=== PATIENT | male | born 1995 | race Caucasian/White ===

== ENCOUNTER 2018-03-06 17:11 | Emergency (ER) | payer BC, OTHER, SELFPAY ==
[2018-03-06 17:12] VITALS: BP 125/82; PULSE 65; RESP 16; TEMP 37.1; O2SAT 96; BMI 28.5
[2018-03-06 17:55] LABS: Absolute Lymphocyte Count 1.84 X10^3/ul (0.83-4.51); Absolute Neutrophil Count 3.8 X10^3/uL (2.0-7.7); Basophil# 0.02 X10^3/uL; Basophil% 0.3 % (0-1); Eosinophil# 0.09 X10^3/uL; Eosinophils% 1.4 % (0-5); Hematocrit 43.8 % (40-54); Hemoglobin 14.9 g/dl (13.0-16.5); Lymphocyte # 1.84 X10^3/ul (4.0); Lymphocyte % 28.7 % (19-41); Mean Corpuscular Hgb 29.4 pg (27.0-32.0); Mean Corpuscular Volume 86.4 fL (80-94); Monocyte# 0.64 X10^3/uL; Neutrophil # 3.81 X10^3/uL (2.7-7.7); Neutrophil % 59.4 % (47-70); POSITIVE COUNT NO; POSITIVE DIFFERENTIAL NO; POSITIVE MORPHOLOGY NO; Platelet Count 209 K/mm3 (150-450); RBC Distribution Width CV 13.1 % (11.6-14.6); RBC Distribution Width SD 41.5 fl (35.1-43.9); Red Blood Count 5.07 M/mm3 (4.6-6.2); White Blood Count 6.4 K/mm3 (4.4-11.0)
[2018-03-06 18:06] LABS: Anion Gap 4 (5-15); BUN 19 mg/dL (7-18); BUN/Creat Ratio 18.1 RATIO (10-20); Chloride 110 mmol/L (98-107); Creatinine, Serum 1.05 mg/dL (0.70-1.30); EST Glomerular Filtration Rate 93 mL/min (>60); Est Glom Filt Rate - Afr Amer 112 mL/min (>60); Estimated Creatinine Clearance 127.21 ml/min; Glucose 99 mg/dL (74-106); Potassium 3.7 mmol/L (3.5-5.1); Sodium Level 141 mmol/L (136-145)
--- NOTE | 2018-03-06 18:37 | ED.DCSUM_ITS ---
- ER Visit Summary Date of Service: 03/06/18 Chief Complaint: Anxiety History of Present Illness: The patient is a 22 M presenting for evaluation secondary to what the patient thinks is an anxiety attack. Patient states that intermittently over the course last 4 years he has had episodes that when he wakes up from a recurrent nightmare about his ex-girlfriend he is weak, shaky, sweaty, and has palpitations. Patient reports that he had a episode today when he went to work his boss was concerned about him and recommended that he come to the emergency department for evaluation. Patient states that he potentially had a history of being hypoglycemic with this in the past. He is not on any sort of medications. He denies being suicidal homicidal or hallucinating. Review of systems otherwise negative. Physical Examination: Vital signs are within normal limits, patient is afebrile. General: Patient is well-nourished well-developed and in no acute distress. Head: Normocephalic, atraumatic Eyes: Pupils equal round and reactive bilaterally, extra occular motion intact bialterally ENT: Moist mucous membranes Neck: Supple, no lymphadenopathy, no JVD, no meningismus CVS: Heart regular rate and rhythm, no murmurs, rubs or gallops, radial pulses 2 + bilaterally Resp: Respirations nondistressed, lung sounds clear bilaterally Abdomen: Soft, nontender, nondistended, no palpable masses, normal bowel sounds Back: Nontender Extremities: Nontender, atraumatic, active full range of motion, no peripheral edema Skin: warm, no rashes, no petechia Neuro: Alert and oriented x 4, CN 2-12 intact, no lateralizing neurological defecits Psyc: Normal affect Test Results: CBC, chemistry unremarkable Emergency Department Course and Treatment: Patient presented for evaluation secondary to an episode of feeling shaky, anxious, weak. His PTT in the field was found to be in the 70s, and the emergency department was in the 90s. Screening labs were obtained, there were found to be negative. Patient was symptom-free in the emergency department. I do believe that this likely is associated with an element of anxiety was recommended to follow-up with his primary care doctor potentially be started on a antidepressant or antianxiety medication Disposition: Discharge Impression: 1. Anxiety This note was generated with [employer] software. It may contain incorrect words, spelling, and punctuation that were not noted in review of the chart prior to signing ED Disposition - Plan for ED Patient: Chief Complaint: General Illness Diagnosis: Anxiety Instructions: ED Stress React Referrals: Tez Ramos DO [Primary Care Provider] - 1-2 Weeks
[2018-03-06 19:03] VITALS: BP 124/67; PULSE 70; RESP 15; O2SAT 99
== END 2018-03-06 19:05 | disposition home or self-care (01) ==
PROVIDERS: Emergency Provider Emergency Medicine; Family Provider Family Medicine; PCP Family Medicine
DX: F41.9 Anxiety disorder, unspecified (principal)
CPT/HCPCS: 80048; 85025; 99284; J7030

== ENCOUNTER 2018-05-03 19:59 | Emergency (ER) | payer BC, OTHER, SELFPAY ==
[2018-05-03 19:59] VITALS: BP 128/85; PULSE 97; RESP 20; TEMP 36.6; O2SAT 97; BMI 28.1
[2018-05-03 20:12] VITALS: PULSE 99; RESP 16; O2SAT 95
[2018-05-03] MEDS: Ondansetron 4 MG/2 ML Vial IV (20:38)
[2018-05-03 20:39] VITALS: O2SAT 100
--- NOTE | 2018-05-03 20:39 | ED.RN ---
AFTER STARTED IV PT FELT LIGHTHEADED AND NAUSEATED. DR CHAVIRA MADE AWARE, ZOFRAN GIVEN. PT REPORTS FEELING BETTER WITH NO COMPLAINTS AFTER MED ADMINISTRATION.
[2018-05-03 20:51] LABS: Absolute Lymphocyte Count 2.48 X10^3/ul (0.83-4.51); Absolute Neutrophil Count 5.4 X10^3/uL (2.0-7.7); Basophil# 0.05 X10^3/uL; Basophil% 0.6 % (0-1); Eosinophil# 0.09 X10^3/uL; Eosinophils% 1.1 % (0-5); Hematocrit 47.1 % (40-54); Hemoglobin 16.3 g/dl (13.0-16.5); Lymphocyte # 2.48 X10^3/ul (4.0); Mean Corp Hgb Conc 34.6 g/gl (32-36); Mean Corpuscular Hgb 29.4 pg (27.0-32.0); Mean Platelet Vol. 9.9 fl (6.2-12.0); Monocyte# 0.54 X10^3/uL; Monocyte% 6.3 % (0-10); Neutrophil # 5.35 X10^3/uL (2.7-7.7); Neutrophil % 62.5 % (47-70); Platelet Count 235 K/mm3 (150-450); RBC Distribution Width CV 12.9 % (11.6-14.6); RBC Distribution Width SD 39.8 fl (35.1-43.9); Red Blood Count 5.54 M/mm3 (4.6-6.2); White Blood Count 8.6 K/mm3 (4.4-11.0)
[2018-05-03 20:52] LABS: POSITIVE COUNT NO; POSITIVE DIFFERENTIAL NO; POSITIVE MORPHOLOGY NO
[2018-05-03 21:04] LABS: D-Dimer Quantitative (DVT/PE) < 0.27 FEU/ug/m (0.27-0.49)
[2018-05-03 21:12] LABS: AST(SGOT) 16 U/L (15-37); Alanine Aminotransfer ALT/SGPT 37 U/L (16-61); Albumin, Serum 4.5 g/dL (3.2-5.0); Alkaline Phosphatase 76 U/L (45-117); Anion Gap 6 (5-15); BUN 21 mg/dL (7-18); BUN/Creat Ratio 18.9 RATIO (10-20); Bilirubin, Direct 0.14 mg/dL (0.00-0.30); Calcium,Total 9.4 mg/dL (8.5-10.1); Chloride 107 mmol/L (98-107); Creatinine, Serum 1.11 mg/dL (0.70-1.30); EST Glomerular Filtration Rate 87 mL/min (>60); Est Glom Filt Rate - Afr Amer 105 mL/min (>60); Globulin 3.6 g/dL (2.2-4.2); Glucose 81 mg/dL (74-106); Lipase 137 U/L (73-393); Potassium 4.4 mmol/L (3.5-5.1); Protein, Total 8.1 g/dL (6.4-8.2); Sodium Level 141 mmol/L (136-145)
--- NOTE | 2018-05-03 21:48 | ED.DCSUM_ITS ---
- ER Visit Summary Date of Service: 05/03/18 Chief Complaint: Left chest and left upper quadrant pain History of Present Illness: The patient is a 22 M reports onset of pain to the lower chest around 4 PM this afternoon. He states he has intermittent twinges of pain to the lower chest, left much more so than right. He denies shortness of breath. No recent travel. States it almost feels like he is getting spasms. Patient has a history of low blood sugar, anxiety, depression. Physical Examination: Vital signs unremarkable. Patient sitting upright in bed. He appears somewhat pale, but did poorly have a vagal response with IV insertion. Heart is regular rate and rhythm. There is no reproducible chest wall tenderness. Lung sounds are clear. Abdomen soft nontender. Lower exam examination was no calf tenderness or edema. Test Results: CBC and chemistry studies normal. LFTs and lipase normal. Troponin negative. D-dimer negative. EKG is sinus 84 with no sign of acute ischemia. Chest x-ray normal. Emergency Department Course and Treatment: Patient was given Zofran, IV fluids, Toradol. On repeat evaluation he has some continued spasms, but overall decrease in frequency. He will be treated with naproxen and Flexeril. Encouraged to return for worsening symptoms or if any concerns arise. Treatment Plan: [] Disposition: Discharge Impression: Atypical chest pain This note was generated with [employer] dictation software. It may contain incorrect words, spelling, and punctuation that were not noted in review of the chart prior to signing ED Disposition - Plan for ED Patient: Disposition: Home or Assisted Living Chief Complaint: Chest Other Instructions: ED Chest Pain NonCardiac Prescriptions: Naproxen [Naprosyn] 500 mg PO BID PRN PRN #20 tablet PRN Reason: Pain Cyclobenzaprine [Flexeril] 10 mg PO TID PRN #20 tablet PRN Reason: Muscle Spasm Referrals: Tez Ramos DO [Primary Care Provider] - 1 Week if not improving
[2018-05-03] MEDS: Ketorolac 30 MG/ML Syringe IV (22:06)
[2018-05-03 22:10] VITALS: BP 107/75; PULSE 58; RESP 14; O2SAT 100
== END 2018-05-03 22:11 | disposition home or self-care (01) ==
PROVIDERS: Emergency Provider Emergency Medicine; Family Provider Family Medicine; PCP Family Medicine
DX: R07.89 Other chest pain (principal)
CPT/HCPCS: 71045; 80048; 80076; 83690; 84484; 85025; 85379; 93005; 99284; A4216; J2405

== ENCOUNTER → 2022-04-28 | Outpatient (CLI) | payer OTHER, SELFPAY | END | disposition home or self-care (01) | PROVIDERS: Visit Provider Ophthalmology | DX: H10.012 Acute follicular conjunctivitis, left eye (principal) | CPT/HCPCS: 87110; 87140 ==

== ENCOUNTER → 2022-05-09 | Outpatient (CLI) | payer OTHER, SELFPAY | END | disposition home or self-care (01) | PROVIDERS: Visit Provider Ophthalmology | DX: H10.012 Acute follicular conjunctivitis, left eye (principal) ==

== ENCOUNTER 2024-05-31 07:19 | Emergency (ER) | payer BC, SELFPAY ==
[2024-05-31 07:19] VITALS: BP 113/73; PULSE 75; RESP 18; TEMP 36.7; O2SAT 95; BMI 31.4
--- NOTE | 2024-05-31 07:51 | EX.ED.DYSGE1 ---
HPI History of Present Illness Chief Complaint: Anxiety Detail of Chief Complaint: Anxiety Informant: patient Narrative Narrative: Patient presents to the emergency department complaint of anxiety. Patient states that he woke up feeling anxious and then went to work. Work has been more stressful. He states anxiety got worse while at work and he was breathing fast and hyperventilating. He was being assisted and held by some individuals walking with him when he may have passed out. Did not fall or injure himself. Feels a little bit improved on arrival to the emergency department. Otherwise has no complaints currently. Denies recent illness. Patient states he used to be on an anxiety medicine but then he felt like he got better and he has not been taking any medication for anxiety. [facility] Medical History (Updated 05/31/24 @ 09:[address] Baron Carmona, DO) Anxiety Home Medications ?Medication ?Instructions ?Recorded ?Last Taken ?Type cyclobenzaprine 10 mg tablet 10 mg PO TID PRN Muscle Spasm ##20 05/03/18 Unknown Rx naproxen 500 mg tablet 500 mg PO BID PRN PRN Pain #20 tabs 05/03/18 Unknown Rx lorazepam 1 mg tablet (Ativan) 1 mg PO TID PRN anxiety #10 tabs 05/31/24 Unknown Rx Allergy/AdvReac Type Severity Reaction Status Date / Time No Known Allergies Allergy Verified 05/03/18 20:01 Family History no significant family his Surgical History no surgical history Social History Smoking Status: Never smoker ROS ROS ED Review of Systems ROS Unobtainable: other Constitutional Constitutional ED: Reports lethargy; Denies chills, fever(s), sweats or weight loss Eyes Eyes: Denies blurry vision, change in vision or diplopia ENT ENT ED: Denies rhinorrhea or sore throat Cardiovascular Cardiovascular: Denies chest pain, orthopnea or racing heartbeat Respiratory/Chest Respiratory/Chest: Reports dyspnea; Denies cough, dyspnea on exertion, orthopnea or sputum Gastrointestinal Gastrointestinal: Denies abdominal pain, diarrhea, nausea or vomiting Genitourinary Genitourinary ED: Denies dysuria, hematuria or urinary frequency Musculoskeletal Musculoskeletal: Denies arthralgias, back pain, myalgias or neck pain Integumentary Denies abscess, Abrasions or rash Neurologic Neurologic: Denies headache(s) or weakness Psychiatric Psychiatric: Denies anxiety, depression or suicidal thoughts Endocrine Endocrinology: Denies polydipsia, polyphagia or polyuria Hematologic/Lymphatic Hematologic/Lymphatic: Denies easy bleeding, easy bruising or lymphadenopathy Allergic/Immunologic Allergic/Immunologic ED: Denies mouth swelling, tongue swelling or urticaria EXAM Physical Exam Const Vital Signs: 05/31/24 07:19 Temperature 98.0 F Temperature Source Oral Pulse Rate 75 Respiratory Rate 18 Blood Pressure 113/73 Blood Pressure Mean 86 Pulse Ox 95 Oxygen Delivery Method Room Air Positive well nourished and well developed General Appearance ED: well developed and NAD HEENT Reports TM's clear and moist mucous membranes normocephalic and atraumatic; Negative for trauma or tenderness Tympanic Membrane ED: Yes TM's clear Eyes PERRL and EOMs intact bilaterally General Eye ED: Negative for pale conjunctiva or scleral icterus Neck no lymphadenopathy, supple and no JVD General: Negative for tenderness Chest Wall inspection of chest normal and palpation of chest normal Chest: Negative for tenderness Resp normal respiratory effort and clear to auscultation bilaterally Effort and Inspection: Negative for respiratory distress or pain with movement Auscultation: Negative for rhonchi, wheezes or diminished lung sounds Cardio regular rate, regular rhythm, S1 normal heart sound, S2 normal heart sound and no murmurs Peripheral Pulses: pulses 2+ throughout GI normal to inspection, nondistended, normoactive bowel sounds, soft to palpation, non-tender, non-distended and no masses Back/Spine no CVA tenderness and no thoracic nor lumbar tenderness Extremity normal to inspection General Extremety ED: Negative for edema General Extremity: Negative for edema Neuro oriented x3, CN's II-XII intact bilaterally, no sensory deficits noted and gait normal Sensorium / Orientation: awake, alert, oriented to person, oriented to place and oriented to time Motor Exam: strength 5/5 throughout and strength abnormal Psych mental status grossly normal Skin no rashes or lesions noted and no wounds MDM MDM MDM Narrative Medical decision making narrative: Patient presents with an anxiety attack and hyperventilation type syndrome. He has been more stressed about work. He states he recently got out of her shift which is what he wanted because second shift did not agree with him. 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 Patient with history of anxiety but currently not being medicated. Denies feeling suicidal or homicidal. While in department he was medicated with Ativan 1 mg IV. Clinically felt improved. He looks well. He is not been ill and has no complaints otherwise. Will discharge to home. Will give a prescription for Ativan. He is advised to follow-up with primary care physician at [facility] within next 3 to 5 days. Lab Data Attestation: I reviewed the patient's lab results. Discharge Plan Triage Chief Complaint: Anxiety ED Provider: Baron Carmona Dx/Rx/DC Orders Clinical Impression: Anxiety reaction Instructions: ED Panic Attack Prescriptions: New lorazepam [Ativan] 1 mg tablet 1 mg PO TID PRN (Reason: anxiety) Qty: 10 0RF No Action naproxen 500 MG tablet 500 mg PO BID PRN PRN (Reason: Pain) Qty: 20 0RF cyclobenzaprine 10 MG tablet 10 mg PO TID PRN (Reason: Muscle Spasm) Qty: 20 0RF Primary Care Provider: Care Physician,No Primary Referrals: Care Physician,No Primary [Primary Care Provider] - Print Language: Korean Disposition Disposition: Home, Self Care
[2024-05-31] MEDS: LORazepam 1 MG Tablet PO (08:09)
[2024-05-31 09:07] VITALS: BP 132/93; PULSE 94; RESP 18; TEMP 36.6; O2SAT 94
== END 2024-05-31 09:10 | disposition home or self-care (01) ==
PROVIDERS: Emergency Provider Emergency Medicine; Visit Provider Emergency Medicine
DX: F41.1 Generalized anxiety disorder (principal); Z56.6 Other physical and mental strain related to work
CPT/HCPCS: 96374; 99282

== ENCOUNTER 2024-06-24 11:21 | Emergency (ER) | payer BC, SELFPAY ==
[2024-06-24 11:22] VITALS: BP 125/75; PULSE 72; RESP 15; TEMP 36.3; O2SAT 94; BMI 31.4
--- NOTE | 2024-06-24 15:08 | ED.RN ---
Pt states he is making an appt with his PCP, declines waiting any longer for ED room. Pt ambulated out of dept.
== END 2024-06-24 15:00 | disposition left against medical advice (07) ==
LOC: ED 15:22
DX: F41.9 Anxiety disorder, unspecified (principal)
CPT/HCPCS: 99281